=== PATIENT | female | born 2000 | race Caucasian/White ===

== ENCOUNTER 2022-05-04 16:21 | Emergency (ER) | payer MEDICAID, OTHER ==
[~2022-05-04] VITALS: Ht 152.4 cm; Wt 51.0 kg
[2022-05-04 16:48] VITALS: BP 107/70
[2022-05-04] MEDS ORDERED: ACETAMINOPHEN 325MG TABLET PO ONE (21:30)
[2022-05-04] MEDS ORDERED: METHOCARBAMOL 500MG TABLET PO ONE (21:30)
[2022-05-04] MEDS ORDERED: TOPUD MT (21:30)
== END 2022-05-04 21:54 | disposition home or self-care (01) ==
LOC: ER 16:21
DX: M79.601 Pain in right arm (principal); V49.59XA Passenger injured in collision with other motor vehicles in traffic accident, initial encounter; Y93.89 Activity, other specified; Y92.89 Other specified places as the place of occurrence of the external cause; Y99.8 Other external cause status
CPT/HCPCS: 99283